=== PATIENT | female | born 1970 | race Two or more races ===

== ENCOUNTER 2018-10-11 14:12 | Emergency (ER) | payer MEDICAID, OTHER ==
[~2018-10-11] VITALS: Ht 165.1 cm; Wt 77.1 kg
[2018-10-11 14:24] VITALS: BP 152/77
== END 2018-10-11 22:27 | disposition left against medical advice (07) ==
LOC: ER 14:15
DX: H57.11 Ocular pain, right eye (principal); E78.5 Hyperlipidemia, unspecified; E07.9 Disorder of thyroid, unspecified; G35 Multiple sclerosis; F12.90 Cannabis use, unspecified, uncomplicated; Z87.891 Personal history of nicotine dependence; Z53.29 Procedure and treatment not carried out because of patient's decision for other reasons